=== PATIENT | female | born 1950 | race Caucasian/White ===

== ENCOUNTER 2019-11-24 06:00 | Observation (INO) ==
[~2019-11-24 06:00] MED LIST: BUPivacaine Liposome/PF (Exparel) Inj 20ml vial INFIL ONE; LIDOCAINE W/ SODIUM BICARB 0.5 ML SYR SUBD ONE; Lactated Ringers 1,000 ML PRIMARY IV SCH; Nasal Sanitizer POPSWAB ampule 3 AMP (Nozin) PREOP DOSE ENOS SCH; Tranexamic Acid 1,000 MG in Sodium Chloride 0.9% 100 ML IV SCH; ceFAZolin Inj 2gm (Premix) 2 GM/50 ML BAG IV ONE
[2019-11-24] MEDS ORDERED: ceFAZolin Inj 2gm (Premix) 2 GM/50 ML BAG IV ONE (06:06)
[2019-11-24] MEDS ORDERED: LIDOCAINE W/ SODIUM BICARB 0.5 ML SYR ONE (06:06)
[2019-11-24] MEDS ORDERED: Lactated Ringers 1,000 ML PRIMARY IV ONE (06:06)
[2019-11-24 06:28] LABS: BILIRUBIN,URINE NEGATIVE (NEG); CLARITY,URINE CLEAR (CLEAR); COLOR,URINE YELLOW (Y); GLUCOSE, URINE (UA) NEGATIVE (NEG); OCCULT BLOOD,URINE NEGATIVE (NEG); PROTEIN,URINE NEGATIVE (NEG); URINE SAMPLE TYPE CLEAN CATCH URINE; UROBILINOGEN,URINE 0.2 EU/dL (0.2)
[2019-11-24] MEDS ORDERED: Sodium Chloride 0.9% vial 20 ML ONE ×2 (06:48→06:56)
[2019-11-24] MEDS ORDERED: BACITRACIN 50,000 UNIT VIAL IRRIG ONE (06:48)
[2019-11-24] MEDS ORDERED: Gentamicin Inj 40 MG/ML VIAL ONE (06:48)
[2019-11-24] MEDS ORDERED: Sodium Chloride 0.9% 500 ML ONE (06:53)
[2019-11-24] MEDS ORDERED: BUPivacaine Liposome/PF (Exparel) Inj 20ml vial INFIL ONE ×2 (06:56→07:51)
[2019-11-24] MEDS ORDERED: SCOPOLAMINE HYDROBROMIDE 1.5 MG - 1 EACH PATCH TRANSDERM ONE (07:48)
[2019-11-24] MEDS ORDERED: BUPIVACAINE 0.5% W/EPI MPF -30 ML VIAL IV ONE (07:52)
[2019-11-24] MEDS ORDERED: ROCURONIUM 10 MG/1 ML - 5 ML VIAL IVP ONE (07:56)
[2019-11-24] MEDS ORDERED: SUCCINYLCHOLINE CHLORIDE 20 MG/1 ML - 10 ML ONE (07:56)
[2019-11-24] MEDS ORDERED: PROPOFOL 10 MG/1 ML (200 MG/20 ML) VIAL IV ONE (07:58)
[2019-11-24] MEDS ORDERED: fentaNYL Inj 250 MCG/5 ML VIAL ONE ×2 (07:58→11:27)
[2019-11-24] MEDS ORDERED: TRANEXAMIC ACID 1,000 MG / 10 ML VIAL ONE ×2 (08:13→11:07)
[2019-11-24] MEDS ORDERED: ONDANSETRON 4 MG/2 ML VIAL ONE ×2 (08:15→12:11)
[2019-11-24] MEDS ORDERED: DEXAMETHASONE PF 10 MG/1 ML VIAL ONE (08:15)
[2019-11-24] MEDS ORDERED: METOPROLOL TARTRATE 5 MG/5 ML VIAL ONE (09:28)
[2019-11-24] MEDS ORDERED: ceFAZolin 1 GM VIAL ONE (11:07)
[2019-11-24] MEDS ORDERED: ceFAZolin Inj 1 GM in Sodium Chloride 0.9% 100 ML IV ONE (11:39)
[2019-11-24] MEDS ORDERED: HYDROmorphone 2 MG/1 ML ONE (13:02)
[2019-11-24] MEDS: HYDROmorphone 2 MG/1 ML IVP PRN ×2 (13:08→13:13)
[2019-11-24] MEDS ORDERED: BISACODYL 10 MG SUPPOSITORY RECTAL PRN (13:30)
[2019-11-24] MEDS ORDERED: HYDROmorphone 2 MG/1 ML IVP PRN (13:30)
[2019-11-24] MEDS ORDERED: Ondansetron ODT Tab 8 MG TAB PO PRN (13:30)
[2019-11-24] MEDS ORDERED: Prochlorperazine Tab 10 MG TAB PO PRN (13:30)
[2019-11-24] MEDS ORDERED: MAG HYDROX/AL HYDROX/SIMETH 30 ML SUSP PO PRN (13:30)
[2019-11-24] MEDS ORDERED: HYDROcodone-APAP 7.5 MG-325 MG TABLET PO PRN (13:30)
[2019-11-24] MEDS ORDERED: ONDANSETRON 4 MG/2 ML VIAL IVP PRN (13:30)
[2019-11-24] MEDS ORDERED: CALCIUM CARBONATE 500 MG (TUMS) CHEWABLE TABLET PO PRN (13:30)
[2019-11-24] MEDS ORDERED: diphenhydrAMINE 25 MG CAPSULE PO PRN (13:30)
[2019-11-24] MEDS ORDERED: ACETAMINOPHEN 325 MG TABLET PO PRN (13:30)
[2019-11-24] MEDS ORDERED: BISACODYL 5 MG TABLET PO PRN (13:30)
[2019-11-24] MEDS: Lactated Ringers 1,000 ML PRIMARY IV SCH ×2 (14:05→23:44)
[2019-11-24] MEDS ORDERED: ceFAZolin Inj 2gm (Premix) 2 GM/50 ML BAG IV SCH (16:00)
[2019-11-24] MEDS: KETOROLAC 15 MG/1 ML VIAL IVP PRN (16:11)
[2019-11-24] MEDS: ceFAZolin Inj 2gm (Premix) 2 GM/50 ML BAG IV SCH (19:20)
[2019-11-24] MEDS: DOCUSATE 100 MG CAPSULE PO SCH (20:24)
[2019-11-25] MEDS: ceFAZolin Inj 2gm (Premix) 2 GM/50 ML BAG IV SCH (02:29)
[2019-11-25] MEDS: KETOROLAC 15 MG/1 ML VIAL IVP PRN (02:46)
[2019-11-25 04:40] LABS: Hemoglobin [HGB] 11.6 g/dL (12.0-16.0); MEAN CORPUSCULAR HGB CONC 33.1 g/dL (33-37); MEAN CORPUSCULAR VOLUME 97.8 FL (81-99); MEAN PLATELET VOLUME 9.9 FL (7.4-12.2); RED BLOOD COUNT 3.58 10^6/uL (4.20-5.40)
[2019-11-25 04:51] LABS: BLOOD UREA NITROGEN 15 mg/dL (7-22)
[2019-11-25 07:12] VITALS: BP 127/67; RESP 16; TEMP 98.2; O2SAT 93
[2019-11-25] MEDS: DOCUSATE 100 MG CAPSULE PO SCH (08:38)
[2019-11-25] MEDS ORDERED: ASPIRIN 81 MG (BABY) CHEWABLE TABLET PO SCH (09:00)
== END 2019-11-25 12:10 | disposition home or self-care (01) ==
LOC: MED/SURG 06:00 → OR 06:00 → MED/SURG 06:13 → OPS 06:30 → EDSTATUS 11-27 08:00
PROVIDERS: ADMIT Orthopaedic Surgery; ATTEND Orthopaedic Surgery